=== PATIENT | female | born 1960 | race African-American/Black ===

== ENCOUNTER 2017-09-24 14:11 | Emergency (ER) | payer MEDICAID ==
[~2017-09-24] VITALS: Ht 162.6 cm; Wt 72.0 kg
[~2017-09-24 14:11] MED LIST: BENA20TA3 PO; INSLAN; INSU100C11 SQ; SIMV20TA6 PO
[2017-09-24 14:54] VITALS: BP 111/69
== END 2017-09-24 17:02 | disposition left against medical advice (07) ==
LOC: ER 14:31
DX: R51 Headache (principal); Z53.21 Procedure and treatment not carried out due to patient leaving prior to being seen by health care provider

== ENCOUNTER 2024-04-23 08:28 | Emergency (ER) | payer BC, MEDICAID ==
[~2024-04-23] VITALS: Ht 162.6 cm; Wt 77.1 kg
[~2024-04-23 08:28] MED LIST changes: +BENA-8 PO; -BENA20TA3 PO; +SIMV-43 PO; -SIMV20TA6 PO; +SITA25TA3 MT
[2024-04-23 08:36] VITALS: O2SAT 96
[2024-04-23 09:07] LABS: HEMATOCRIT. 40.8 % (36.0-48.0); MEAN CORPUSCULAR HEMOGLOBIN 27.6 pg (28.0-32.0); MEAN CORPUSCULAR HGB CONC 31.9 g/dL (31.0-37.0); MEAN CORPUSCULAR VOLUME 86.6 fL (81.0-99.0); MEAN PLATELET VOLUME 9.4 fl (7.4-10.4); PLATELET 168 x1000/uL (130-400); RED BLOOD CELL COUNT 4.71 mill/uL (4.2-5.4); RED CELL DISTRIBUTION WIDTH 15.7 % (11.6-14.6); WHITE BLOOD COUNT 12.5 x1000/uL (4.5-11.0)
[2024-04-23 09:14] LABS: CHLORIDE 97 mEq/L (98-107); DIFFERENTIAL COMMENT 1; POTASSIUM 4.8 mEq/L (3.5-5.1); SODIUM 127 mEq/L (136-145)
[2024-04-23 09:15] LABS: CARBON DIOXIDE 15 mEq/L (21-32)
[2024-04-23 09:20] LABS: CREATININE 3.7 mg/dL (0.6-1.0); UREA NITROGEN BLOOD 46 mg/dL (9-23)
[2024-04-23 09:21] LABS: TROPONIN I HIGH SENSITIVITY 23 ng/L (3.0-34)
[2024-04-23 09:29] LABS: GLUCOSE 478 mg/dL (70-105)
[2024-04-23] MEDS: SODIUM CHLORIDE 0.9% 1,000 ML IV ONE (09:39)
[2024-04-23 10:17] LABS: ETHANOL BLOOD < 10 mg/dL (<10)
[2024-04-23 10:38] LABS: PLATELET ESTIMATE NORMAL
[2024-04-23] MEDS: PIPERACILLIN/TAZO 3.375G/50ML 50 ML IV STA (10:59)
[2024-04-23] MEDS: INSULIN REGULAR (HUMULIN R) 1000UNITS/10ML VIAL SUBCUT ONE (11:08)
[2024-04-23 11:22] VITALS: BP 134/68; PULSE 110; RESP 20; TEMP 98
== END 2024-04-23 13:36 | disposition left against medical advice (07) ==
LOC: ER 08:28 → CANBEDREQ 13:29 → ER 13:36
DX: N12 Tubulo-interstitial nephritis, not specified as acute or chronic (principal); E11.65 Type 2 diabetes mellitus with hyperglycemia; N17.9 Acute kidney failure, unspecified; I11.0 Hypertensive heart disease with heart failure; I50.9 Heart failure, unspecified; E78.00 Pure hypercholesterolemia, unspecified; Z88.0 Allergy status to penicillin; Z91.148 Patient's other noncompliance with medication regimen for other reason; Z86.73 Personal history of transient ischemic attack (TIA), and cerebral infarction without residual deficits
CPT/HCPCS: 80048; 82010; 80320; 83880; 83690; 85025; 84484; 36415; 84145; 71045; 74176; 93005; 96365; 96372; 99285; J1815; J2543; J7030; G0480